=== PATIENT | female | born 1980 | race Caucasian/White ===

== ENCOUNTER → 2019-08-10 13:39 | Outpatient (BNVA) | payer MEDICAID, SELFPAY | PROVIDERS: Visit Provider Psychiatry & Neurology Psychiatry | DX: F60.3 Borderline personality disorder (principal); F43.12 Post-traumatic stress disorder, chronic; F33.2 Major depressive disorder, recurrent severe without psychotic features | CPT/HCPCS: 99204 ==

== ENCOUNTER → 2019-12-02 09:39 | Outpatient (BNVA) | payer MEDICAID, SELFPAY | PROVIDERS: PCP Family Medicine; Visit Provider Psychiatry & Neurology Psychiatry | DX: F60.3 Borderline personality disorder (principal); F43.12 Post-traumatic stress disorder, chronic; F33.2 Major depressive disorder, recurrent severe without psychotic features; F50.2 Bulimia nervosa | CPT/HCPCS: 99214 ==

== ENCOUNTER → 2019-12-08 08:43 | Outpatient (BNVA) | payer MEDICAID, SELFPAY | PROVIDERS: PCP Family Medicine; Visit Provider Counselor Professional | DX: F60.3 Borderline personality disorder (principal); F33.2 Major depressive disorder, recurrent severe without psychotic features; F43.12 Post-traumatic stress disorder, chronic | CPT/HCPCS: 90832 ==

== ENCOUNTER 2020-01-14 21:00 | Emergency (ER) | payer MEDICAID, SELFPAY ==
[2020-01-14 21:11] VITALS: BP 128/82; PULSE 75; RESP 14; TEMP 36.7; O2SAT 99; BMI 29.2
--- NOTE | 2020-01-14 21:48 | W.ED.BACK ---
HPI - Back Pain/Injury General: Chief Complaint: Back Pain/Injury Stated Complaint: back pain Time Seen by Provider: 01/14/20 21:02 Source: patient Mode of arrival: ambulatory Limitations: no limitations History of Present Illness: HPI Narrative: 39-year-old female states she was putting weight high to bed and had a strain of her lower back. States she has a long history of back issues. Patient states her pain is sharp in nature and worse with movement. Patient states pain is a 7 out of 10. Denies any bowel or bladder incontinence. MD elicited complaint: back pain Pertinent past history: prior back pain Onset (ago): day(s) Timing: constant Severity: moderate Quality: sharp Location: lumbar spine Radiation: left upper leg Exacerbating factors: movement Relieving factors: immobilization Context: while lifting Associated symptoms: Deny abdominal pain, chills, dysuria, fever(s), nausea or vomiting Review of Systems Const: Denies: fever(s), chills, body aches or change in appetite Eyes: Denies: blurry vision or eye discomfort ENMT: Denies: throat pain or dental pain Card: Denies: chest pain Resp: Denies: dyspnea GI: Denies: abdominal pain, nausea, vomiting or diarrhea : Denies: dysuria Musc: Reports: back pain Skin/Breast: Denies: rash Neuro: Denies: headache(s) Psych: Denies: depression Darian/Lymph: Denies: easy bruising All/Imm: Denies: urticaria PFSH ED PFSH: Surgical History (Updated 08/10/19 @ 13:48 by Mello Mane LPN) H/O abdominal hysterectomy History of tonsillectomy Hx of cholecystectomy Tubal ligation status Social History (Updated 08/10/19 @ 14:07 by Mello Mane LPN) Smoking and tobacco status: former smoker Quit status (tobacco): has quit using tobacco Year quit tobacco: 2019 Second hand smoke exposure: Yes ( Sometimes. ) Smoking risk assessment/counseling performed?: Yes Tobacco counseling given: counseling >3 minutes Physical Exam Const: COMMON NORMALS: no acute distress, patient oriented x3 and healthy appearing HENMT: COMMON NORMALS: normocephalic and atraumatic HEAD & SCALP: normocephalic and atraumatic Eye: COMMON NORMALS: Equal, round and reactive pupils present and EOMs intact bilaterally PUPIL: Yes Equal, round and reactive pupils present Neck/C-Spine: COMMON NORMALS: full ROM and supple Chest: COMMONS NORMALS: normal inspection of the chest and normal palpation of entire chest wall Resp: COMMON NORMALS: normal respiratory effort, No retractions, No use of accessory muscles and clear to auscultation bilaterally AUSCULTATION: clear to auscultation bilaterally Cardio: COMMON NORMALS: regular rate, regular rhythm and No murmurs present (Cardio) RATE: regular rate RHYTHM: regular rhythm GI: COMMON NORMALS: Normal to inspection, nondistended, normoactive bowel sounds present, Soft to palpation, non-tender and no masses PALPATION: Yes Soft to palpation Back/Pelvis: OTHER: Tender over left lower lumbar region. No saddle anesthesia no midline tenderness. Extremity: COMMON NORMALS: normal to inspection and full ROM Neuro: COMMON NORMALS: patient oriented x3, moves all extremities and no focal motor deficits Psych: COMMON NORMALS: mental status grossly normal, Normal thought process present and cooperative THOUGHT PROCESS: Normal thought process present Skin: COMMON NORMALS: no rashes or lesions noted and no wounds GENERAL SKIN EXAM: no rashes or lesions noted Course Vital Signs: Vital signs: Vital Signs Temperature 98.0 F 01/14/20 21:11 Pulse Rate 75 01/14/20 21:11 Respiratory Rate 14 01/14/20 21:11 Blood Pressure 128/82 01/14/20 21:11 Pulse Oximetry 99 01/14/20 21:11 MDM - Back Pain/Injury MDM Narrative: Medical decision making narrative: Patient presents here with low back pain with sciatica. Patient is well-appearing here with no signs of cord compression or epidural abscess. Patient given Decadron here and will prescribe Medrol Dosepak and Robaxin. Patient is return if worsening. Discharge Plan Discharge Patient Disposition: Home, Self-Care Clinical Impression: Strain of lumbar region Qualifiers: Encounter type: initial encounter Qualified Code(s): S39.012A - Strain of muscle, fascia and tendon of lower back, initial encounter Sciatica Qualifiers: Laterality: left Qualified Code(s): M54.32 - Sciatica, left side Condition: Stable Prescriptions: [place] 5-325 mg tablet 1 tab PO Q6H PRN (Reason: pain) Qty: 8 RF: 0 Robaxin-750 750 mg tablet 750 mg PO Q6H Qty: 30 RF: 0 Medrol ([place]) 4 mg tablets,dose pack See Rx Instructions .ROUTE .COMPLEX Qty: 21 RF: 0 No Action loratadine 10 mg capsule 10 mg PO QDAY RF: 0 gabapentin 600 mg tablet 900 mg PO TID RF: 0 omeprazole 20 mg tablet,delayed release (DR/EC) 20 mg PO BID RF: 0 topiramate 25 mg tablet 25 mg PO BID Qty: 60 RF: 2 bupropion HCl [Wellbutrin SR] 150 mg tablet sustained-release 12 hr 150 mg PO QAM Qty: 30 RF: 2 diphenhydramine HCl 50 mg capsule 100 mg PO .HS PRN (Reason: insomnia) Qty: 60 RF: 2 Discharge Orders: Discharge Order (Routine); Ordered 01/14/20 Ordered By: Zka Carrillo Discharge Diet: Advance as tolerated Discharge Activity: Resume usual activity Patient Instructions: Lumbar Radiculopathy (ED) Coding Level of Care Code ED [facility] [employer] Manager for [place]
[2020-01-14] MEDS: HYDROcodone-acetaminophen 7.5-325 mg Tablet 1 TAB PO (22:02)
[2020-01-14] MEDS: dexamethasone 10 mg/mL INJ IM (22:05)
[2020-01-14 22:17] VITALS: BP 126/91; PULSE 67; RESP 16; O2SAT 100
--- NOTE | 2020-01-15 10:26 | DCPLANNER ---
community services manager had message to speak with patient about getting established with a primary care physician. community services manager called [phone], unable to speak with patient, a voicemail was left for patient to return outpatient case manager phone call.
== END 2020-01-14 22:18 | disposition home or self-care (01) ==
PROVIDERS: Emergency Provider Emergency Medicine
DX: S39.012A Strain of muscle, fascia and tendon of lower back, initial encounter (principal); M54.32 Sciatica, left side; X58.XXXA Exposure to other specified factors, initial encounter
CPT/HCPCS: 12345; 96372; 99281; 99283; J1100

== ENCOUNTER → 2020-03-11 08:27 | Outpatient (BNVA) | payer MEDICAID, SELFPAY | PROVIDERS: Visit Provider Psychiatry & Neurology Psychiatry | DX: F50.2 Bulimia nervosa (principal); F33.2 Major depressive disorder, recurrent severe without psychotic features; F43.12 Post-traumatic stress disorder, chronic; F60.3 Borderline personality disorder | CPT/HCPCS: 99214 ==

== ENCOUNTER → 2020-08-01 13:52 | Outpatient (BNVA) | payer MEDICAID, SELFPAY | PROVIDERS: Visit Provider Psychiatry & Neurology Psychiatry | DX: F33.2 Major depressive disorder, recurrent severe without psychotic features (principal); F43.12 Post-traumatic stress disorder, chronic; F50.2 Bulimia nervosa; F60.3 Borderline personality disorder; F41.1 Generalized anxiety disorder | CPT/HCPCS: 99214 ==

== ENCOUNTER 2020-08-02 15:04 | Outpatient (CLI) | payer MEDICAID, SELFPAY ==
--- NOTE | 2020-08-02 15:20 | MR_ITS ---
WS: [id number] MRI RIGHT KNEE HISTORY: ACUTE MEDIAL MENISCUS TEAR OF RIGHT KNEE, prior surgery RIGHT knee. COMPARISON: 06/17/2019 Anterior cruciate ligament: Intact. Posterior cruciate ligament: Intact. Medial collateral ligament: Displaced from the joint line by large complex lobulated cystic mass rajwinder g the medial knee. Posterior lateral corner structures: Intact. Medial menisci: Increased T2 signal in a horizontal manner through the posterior horn. Abnormal signa l extends to the superior articular surface. The signal has increased since the prior study. Anterior horn is normal. Lateral meniscus: Intact. Normal signal, size and shape. Extensor mechanism: Distal quadriceps tendon and patellar tendons are intact. Fluid and soft tissue: Moderate-sized joint effusion has increased since the prior examination. No Ba ker's cyst. Lobulated cystic mass adjacent to the medial knee measures 2.7 x 1.3 cm. Predominantly in creased signal on the T2 and FLAIR sequences and low on the T1 sequences. This mass has increased in size and now there is a small amount of adjacent free fluid. Osseous and articular structures: Patellofemoral compartment: Medial compartment: Moderate narrowing of the medial compartment. Small amount of marrow edema on bot h sides of the joint. Loss of cartilage in the medial compartment. Overall mild progression of the de generative changes. No acute fracture. Lateral compartment: No acute abnormalities. MR/MR knee RT wo con* [id number] IMPRESSION: 1. Moderate-sized suprapatellar joint effusion has increased since the prior s tudy. 2. Abnormal signal in the posterior horn medial meniscus extends to the superi or articular surface. Consistent with a meniscal tear. There is an adjacent enl arging complex cyst along the medial knee displacing the MCL. As noted on the p rior study this is probably a meniscal cyst or ganglion. 3. Small amount of marrow edema in the medial femoral condyle and tibial plate au with moderate osteoarthritis.
== END 2020-08-02 15:05 | disposition home or self-care (01) ==
LOC: RADWPI 15:13
PROVIDERS: Visit Provider Orthopaedic Surgery
DX: S83.241D Other tear of medial meniscus, current injury, right knee, subsequent encounter (principal); M17.11 Unilateral primary osteoarthritis, right knee; X58.XXXD Exposure to other specified factors, subsequent encounter; R60.0 Localized edema
CPT/HCPCS: 73721

== ENCOUNTER 2020-10-02 14:39 | Emergency (ER) | payer MEDICAID, SELFPAY ==
[2020-10-02 14:49] VITALS: BP 157/104; PULSE 100; RESP 28; TEMP 37.2; O2SAT 100; BMI 34.0
--- NOTE | 2020-10-02 15:14 | XRR_ITS ---
PROCEDURE INFORMATION: Exam: XR Right Knee Exam date and time: 10/02/2020 3:15 PM Age: 40 years old Clinical indication: Pain; Right; Prior surgery; Surgery date: 3-7 days post-operative; Surgery type: RT knee; Additional info: Post op pain tkr TECHNIQUE: Imaging protocol: XR Right knee. Views: 3 views. COMPARISON: No relevant prior studies available. FINDINGS: Bones/joints: Negative for acute bony abnormality a metallic knee replacement is present in good position without loosening. Soft tissues: Metallic piyush are seen in the midline anterior right knee. XR/XR knee RT 3V* [id number] IMPRESSION: 1. Metallic knee replacement is present in good position. 2. Negative for acute bony abnormalities 3. Metallic piyush anterior knee soft tissues
--- NOTE | 2020-10-02 15:15 | ED_ITS ---
HPI - Extremity Problem General: Chief complaint: Extremity Injury, Lower Stated complaint: pain in right knee, surgery last week Time Seen by Provider: 10/02/20 15:06 History of Present Illness: HPI Narrative: Patient complains about right knee pain postsurgical total replacement. Patient had nerve blocks were off and he is hurt since then. Was prescribed Percocet she said does not help in any. Patient said she is doing physical therapy on because she cannot afford physical therapy. Dr. Luis Story did the surgery. MD Complaint: joint pain Onset (ago): day(s) Pain Consistency: constant Location: right and knee Severity scale (1-10): 10 Quality: aching and constant Radiation: none Relieving factors: nothing Exacerbating factors: nothing Associated symptoms: Reports no associated symptoms; Deny chest pain, fever(s) or rash Review of Systems Const: Denies: fever(s), chills or body aches Eyes: Denies: change in vision or blurry vision ENMT: Denies: throat pain or nasal congestion Card: Denies: chest pain or dyspnea on exertion Resp: Denies: dyspnea, productive cough or non-productive cough GI: Denies: abdominal pain, nausea or vomiting Musc: Reports: joint pain (Total knee replacement on 09/29); Denies: extremity pain Skin/Breast: Denies: rash Neuro: Denies: headache(s) Psych: Denies: anxiety or depression Darian/Lymph: Denies: easy bruising PFS ED PFSH: Surgical History (Updated 08/10/19 @ 13:48 by Mello Mane LPN) H/O abdominal hysterectomy History of tonsillectomy Hx of cholecystectomy Tubal ligation status Social History (Updated 08/10/19 @ 14:07 by Mello Mane LPN) Smoking and tobacco status: former smoker Quit status (tobacco): has quit using tobacco Year quit tobacco: 2019 Second hand smoke exposure: Yes ( Sometimes. ) Smoking risk assessment/counseling performed?: Yes Tobacco counseling given: counseling >3 minutes Physical Exam Const: COMMON NORMALS: average body habitus and patient oriented x3 OTHER: Patient appears in distress with pain. HENMT: COMMON NORMALS: normocephalic HEAD & SCALP: normal to inspection and normocephalic FACE & SINUS: normal facial exam Eye: COMMON NORMALS: conjunctivae normal GENERAL EYE: appearance normal, both eyes and all related structures CONJUNCTIVA: Yes conjunctivae normal Neck/C-Spine: COMMON NORMALS: no JVD Chest: COMMONS NORMALS: normal inspection of the chest Resp: COMMON NORMALS: normal respiratory effort and clear to auscultation bilaterally AUSCULTATION: clear to auscultation bilaterally Cardio: COMMON NORMALS: no JVD, regular rate and regular rhythm RATE: regular rate RHYTHM: regular rhythm GI: COMMON NORMALS: Normal to inspection, nondistended, normoactive bowel sounds present Extremity: COMMON NORMALS: normal to inspection and full ROM NARRATIVE EXTREMITY EXAM: Right knee appears without any drainage redness erythema. [place] are intact incision intact. Pain with palpation throughout the knee area. Range of motion due to pain. Neuro: COMMON NORMALS: patient oriented x3 Course Vital Signs: Vital signs: Vital Signs Temperature 99.0 F 10/02/20 14:49 Pulse Rate 88 10/02/20 15:28 Respiratory Rate 18 10/02/20 15:28 Blood Pressure 113/65 10/02/20 15:28 Pulse Oximetry 100 10/02/20 14:49 MDM - Extremity (Nontraumatic) MDM Narrative: Medical decision making narrative: I spoke with Dr. Smith about the patient's presenting symptoms. Dr. Smith does not want us to prescribe any more medications such possible NSAID which she has stomach problems with. He says that just get her pain under control in ER then have her follow-up as she scheduled on Saturday with him. Discharge Plan Discharge Prescriptions: No Action loratadine 10 mg capsule 10 mg PO QDAY RF: 0 nortriptyline 10 mg capsule 10 mg PO .HS RF: 0 spironolactone 25 mg tablet 25 mg PO BID RF: 0 bupropion HCl [Wellbutrin XL] 300 mg tablet extended release 24 hr 300 mg PO QAM Qty: 30 RF: 2 gabapentin 600 mg tablet 900 mg PO TID 30 Days Qty: 135 RF: 0 Coding Level of Care Code ED Power Crane Operator for Chg Fwd Exam Comprehensive
[2020-10-02 15:21] VITALS: RESP 16
[2020-10-02] MEDS: morphine 4 mg/mL SDV 1 mL IM (15:21)
[2020-10-02] MEDS: ondansetron 2 mg/ML SDV 2 mL 4 MG IM (15:21)
[2020-10-02 15:28] VITALS: BP 113/65; PULSE 88; RESP 18
[2020-10-02 16:08] VITALS: BP 127/75; PULSE 78; RESP 16
== END 2020-10-02 16:10 | disposition home or self-care (01) ==
PROVIDERS: Emergency Provider Nurse Practitioner Family
DX: M25.561 Pain in right knee (principal); Z87.891 Personal history of nicotine dependence
CPT/HCPCS: 73562; 96372; 99283; J2270; J2405